=== PATIENT | male | born 1955 | race Caucasian/White ===

== ENCOUNTER 2017-05-16 08:39 | Inpatient (IN) ==
[2017-05-16] MEDS ORDERED: CARDIZEM IV ONE (09:00)
[2017-05-16] MEDS ORDERED: ASPIRIN PO ONE (09:02)
[2017-05-16] MEDS ORDERED: TYLENOL PO ONE (09:02)
[2017-05-16] MEDS ORDERED: NS 1,000 ML IV ONE ×4 (09:02→17:14)
[2017-05-16] MEDS ORDERED: CARDIZEM ONE (09:02)
[2017-05-16 09:11] LABS: ALLEN TEST YES; BE -5.2 mmoll (-3.0-3.0); BLOOD TYPE ARTERIAL; DRAW SITE L RADIAL; METHB 1.4 % (0.0-1.5); O2(CT) 20.7 mL/dL (15.0-23.0); PCO2(98.6) 27 mmHg (35-45); PO2(98.6) 73 mmHg (60-100); SAMPLE BLOOD; SAO2 96.7 % (95.0-100.0); THB 15.8 g/dL (11.5-17.4); pH(98.6) 7.42 (7.35-7.45)
[2017-05-16 09:12] LABS: MODALITY CANNULA
[2017-05-16 09:57] LABS: BASO% 0.1 % (0.0-0.8); EOS# 0.12 X1000 (0.0-0.7); EOS% 0.8 % (0.0-10.0); HEMATOCRIT 45.4 % (42.0-52.0); HEMOGLOBIN 15.6 g/dL (14.0-18.0); IMM GRAN# 0.43 X1000 (0.0-0.04); IMM GRAN% 2.7 % (0.0-0.5); LYMPH# 0.62 X1000 (1.2-3.4); LYMPH% 3.9 % (20.5-51.1); MANUAL DIFF NEEDED? NO; MCH 30.6 PG (27-31); MCHC 34.4 g/dL (33-37); MCV 89.2 FL (81-99); MONO# 0.87 X1000 (0.11-0.59); MONO% 5.5 % (1.7-9.3); MPV 10.2 FL (7.4-10.4); PLT 215 X1000 (130-400); RBC 5.09 XMIL (4.7-6.1)
[2017-05-16 10:04] LABS: ALBUMIN 3.6 g/dL (3.5-5.0); CALCIUM 8.8 mg/dL (8.8-10.2); POTASSIUM 4.5 mmol/L (3.5-5.1); TOTAL BILIRUBIN 1.89 mg/dL (0.20-1.00); TOTAL PROTEIN 7.1 g/dL (6.3-8.3)
[2017-05-16] MEDS ORDERED: ZOSYN 3.375 GM in NS 50 ML IV ONE (10:16)
[2017-05-16] MEDS ORDERED: QUELICIN ONE (10:20)
[2017-05-16] MEDS ORDERED: AMIDATE ONE (10:20)
[2017-05-16] MEDS ORDERED: LANOXIN ONE (10:33)
[2017-05-16] MEDS ORDERED: DIPRIVAN 1% 1,000 MG/100 ML BOTTLE ONE (10:51)
[2017-05-16 10:52] LABS: INR 3.07; PROTIME 34.6 Seconds (9.2-11.7); PTT 58.4 Seconds (22.0-36.0)
[2017-05-16] MEDS ORDERED: DIPRIVAN 1% IV ONE (10:59)
[2017-05-16] MEDS ORDERED: SODIUM BICARBONATE 8.4% ONE ×2 (11:00→19:11)
[2017-05-16] MEDS ORDERED: DOPAMINE 800 MG/D5W 800 MG/500 ML IV.SOLN IV SCH (11:20)
[2017-05-16 12:01] LABS: URINE SOURCE CATH
[2017-05-16] MEDS ORDERED: DIPRIVAN 1% 1,000 MG/100 ML BOTTLE IV SCH (12:01)
[2017-05-16 12:06] LABS: BILIRUBIN URINE SMALL (NEGATIVE); BLOOD URINE MODERATE (NEGATIVE); COLOR YELLOW; GLUCOSE URINE 70 mg/dL (NEGATIVE); LEUKOCYTES URINE LARGE (NEGATIVE); NITRITE URINE NEGATIVE (NEGATIVE); PH URINE 6.5; PROTEIN URINE 600 mg/dL (NEGATIVE); SP GRAVITY URINE 1.016; TURBIDITY URINE TURBID (CLEAR); UROBILINOGEN URINE NORMAL (NORMAL)
[2017-05-16 12:12] LABS: UR EPITHELIAL CELLS >10 /HPF (<10); URINE BACTERIA NEGATIVE /HPF; URINE MICRO REVIEW NEEDED? YES; URINE RBC TNTC /HPF (<10); URINE WBC TNTC /HPF (<10)
[2017-05-16 12:17] LABS: URINE CASTS NONE SEEN; URINE SMALL ROUND CELLS NONE SEEN
[2017-05-16] MEDS ORDERED: SODIUM CHLORIDE 0.9% INJ SCH (12:19)
[2017-05-16] MEDS ORDERED: EPINEPHRINE SYRINGE ONE ×2 (12:40→19:11)
[2017-05-16] MEDS ORDERED: PROTONIX IV SCH (13:00)
[2017-05-16] MEDS ORDERED: LEVOPHED 8 MG in D5 1/2 NS 250 ML IV SCH (14:15)
[2017-05-16] MEDS ORDERED: MORPHINE IV PRN (15:13)
[2017-05-16] MEDS ORDERED: ATIVAN IV PRN (15:13)
[2017-05-16] MEDS ORDERED: VANCOMYCIN IV PER PHARMACY MISC SCH (15:15)
[2017-05-16] MEDS ORDERED: VANCOMYCIN 1 GM/NS 1 GM/250 ML IVPB IV ONE (16:00)
[2017-05-16] MEDS ORDERED: EPINEPHRINE 4 MG in NS 250 ML IV SCH (16:00)
[2017-05-16] MEDS ORDERED: HUMALOG SUBQ SCH (16:00)
[2017-05-16 16:28] VITALS: BP 72/48
[2017-05-16] MEDS ORDERED: ZOSYN 2.25 GM in NS 50 ML IV SCH (18:00)
[2017-05-16] MEDS ORDERED: ATROPINE SYRINGE ONE (19:11)
[2017-05-16] MEDS ORDERED: CALCIUM CHLORIDE SYRINGE ONE (19:11)
[2017-05-16] MEDS ORDERED: NS ONE (19:11)
== END 2017-05-16 15:53 | disposition expired ==
LOC: EDSEX → SUPCPDRO → ED 08:39 → EDIPHOLD 12:13
PROVIDERS: ADMIT Internal Medicine; ATTEND Internal Medicine